=== PATIENT | male | born 1995 | race Caucasian/White ===

== ENCOUNTER 2021-05-06 16:59 | Emergency (ER) | payer MEDICAID ==
[~2021-05-06] VITALS: Ht 177.8 cm; Wt 66.0 kg
--- NOTE | 2021-05-06 17:34 | NUR ---
CALLED [facility] FOR INFORMATION IN REGARDS TO [facility] THAT WAS DONE. NEED TO FIND OUT WHAT IT SHOWED PER DR DELONG. CALLED @17:35 WAS TOLD THEY WILL CALL BACK WITH INFORMATION NEEDED.
[2021-05-06 19:46] VITALS: BP 114/74
== END 2021-05-06 19:47 | disposition home or self-care (01) ==
LOC: ER 17:00
DX: I82.401 Acute embolism and thrombosis of unspecified deep veins of right lower extremity (principal); M79.604 Pain in right leg; F12.90 Cannabis use, unspecified, uncomplicated; Z86.718 Personal history of other venous thrombosis and embolism; Z72.89 Other problems related to lifestyle
CPT/HCPCS: 93971; 99284

== ENCOUNTER 2023-09-15 14:28 | Emergency (ER) | payer MEDICAID ==
[~2023-09-15] VITALS: Ht 177.8 cm; Wt 70.0 kg
[2023-09-15 16:22] LABS: BASOPHILS # (AUTO) 0.1 X10'3 (0-0.2); BASOPHILS % (AUTO) 0.7 % (0-1); EOSINOPHILS # (AUTO) 0.3 X10'3 (0-0.9); EOSINOPHILS % (AUTO) 3.8 % (0-6); HEMATOCRIT 39.7 % (42.0-52.0); HEMOGLOBIN 13.3 g/dl (14.0-17.9); LYMPHOCYTES % (AUTO) 25.6 % (21-51); MEAN CORPUSCULAR HEMOGLOBIN 28.6 PG (27.0-31.0); MEAN CORPUSCULAR HGB CONC 33.5 g/dL (33.0-36.5); MEAN CORPUSCULAR VOLUME 85.6 FL (78-98); MEAN PLATELET VOLUME 7.1 FL (7.4-10.4); MONOCYTES # (AUTO) 0.7 X10'3 (0-0.9); NEUTROPHILS # (AUTO) 4.8 X10'3 (1.8-7.7); NEUTROPHILS % (AUTO) 60.9 % (42-75); PLATELET COUNT 485 X10'3 (140-440); RED BLOOD COUNT 4.64 X10'6 (4.70-6.10); WHITE BLOOD COUNT 7.9 X10'3 (4.5-11.0)
[2023-09-15 16:35] LABS: D-DIMER 4.17 MG/L FEU (0-0.50)
[2023-09-15 16:38] VITALS: BP 115/68; PULSE 74; RESP 12; TEMP 98; O2SAT 100
[2023-09-15 16:47] LABS: ALANINE AMINOTRANSFERASE 16 U/L (12-78); ALBUMIN 3.6 G/DL (3.4-5.0); ALBUMIN/GLOBULIN RATIO 0.7 (1.1-1.5); ALKALINE PHOSPHATASE 67 IU/L (46-116); ANION GAP 6 (8-16); ASPARTATE AMINO TRANSFERASE 14 U/L (10-37); BILIRUBIN,TOTAL 0.4 MG/DL (0.1-1.0); BLOOD UREA NITROGEN 16 MG/DL (7-18); BUN/CREATININE RATIO 15.5 (10.0-20.0); CALCIUM 9.9 MG/DL (8.5-10.1); CHLORIDE 101 MMOL/L (99-107); CREATININE 1.03 MG/DL (0.60-1.10); GLUCOSE 94 MG/DL (70-104); POTASSIUM 4.2 MMOL/L (3.5-5.1); SODIUM 138 MMOL/L (135-145); TOTAL CARBON DIOXIDE 31.5 MMOL/L (24-32); TOTAL PROTEIN 8.5 G/DL (6.4-8.2); eCRCL 106 ML/MIN; eGFR 86 ML/MIN
--- NOTE | 2023-09-15 20:37 | NUR ---
MD MADE AWARE OF ELEVATED D-DIMER, NEW ORDERS RECEIVED.
--- NOTE | 2023-09-15 22:55 | NUR ---
NO ANSWER X1
--- NOTE | 2023-09-15 23:12 | NUR ---
NO ANSWER X 2
--- NOTE | 2023-09-15 23:17 | NUR ---
NO ANSWER X3
--- NOTE | 2023-09-15 23:19 | NUR ---
ATTEMPTED TO CALL PATIENT AT HOME WITH NOTED PHONE NUMBER, NO ANSWER. CHARGE NURSE NOTIFIED.
--- NOTE | 2023-09-15 23:31 | NUR ---
ATTEMPTED TO CALL PHONE AGAIN, NO ANSWER. MD AND CHARGE NOTIFIED, VERBALIZED UNDERSTANDING.
== END 2023-09-15 23:32 | disposition left against medical advice (07) ==
LOC: ER 14:29
DX: M79.652 Pain in left thigh (principal); Z53.21 Procedure and treatment not carried out due to patient leaving prior to being seen by health care provider
CPT/HCPCS: 36415; 80053; 85025; 85379; 99281